=== PATIENT | female | born 2005 | race Two or more races ===

== ENCOUNTER 2025-02-18 16:36 | Emergency (ER) | payer OTHER ==
[2025-02-18 16:57] VITALS: BP 125/79; PULSE 72
[2025-02-18] MEDS: Lidocaine 1% 5 ML VIAL INJECT ONE (17:03)
[2025-02-18] MEDS: Bacitracin/Neomycin/Polymyxin B Oint 0.9 GM U/D Packet TOP ONE (17:15)
== END 2025-02-18 17:23 | disposition home or self-care (01) ==
LOC: EDBD 16:36 → CC.ED 16:36
DX: S61.412A Laceration without foreign body of left hand, initial encounter (principal); W26.0XXA Contact with knife, initial encounter
CPT/HCPCS: 12001; 99282; A9270-GY; J2003